=== PATIENT | female | born 1970 | race Caucasian/White ===

== ENCOUNTER 2016-09-08 21:09 | Emergency (ER) | payer OTHER ==
[2016-09-08 21:23] VITALS: BP 158/73; PULSE 70
[2016-09-08] MEDS ORDERED: BENADRYL 50 MG/ML IV ONE (21:49)
[2016-09-08] MEDS ORDERED: Sodium Chloride 0.9% 1000 ML 1,000 ML IV STA (21:49)
[2016-09-08] MEDS ORDERED: TORAdol 30 mg Injection IV ONE (21:49)
[2016-09-08] MEDS ORDERED: Zofran 4 MG/2 ML VIAL IV ONE (21:49)
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
[2016-09-08 22:03] VITALS: O2SAT 98
[2016-09-08] MEDS ORDERED: BENADRYL 50 MG/ML ONE (22:04)
[2016-09-08] MEDS ORDERED: Sodium Chloride 0.9% 1000 ML 1,000 ML ONE (22:04)
[2016-09-08] MEDS ORDERED: Zofran 4 MG/2 ML VIAL ONE (22:04)
[2016-09-08] MEDS ORDERED: TORAdol 30 mg Injection ONE (22:04)
[2016-09-08 22:08] LABS: BASOPHIL % 0.3 % (0.0-0.4); Eosinophil % 1.8 % (0.00-5.0); Granulocytes % 57.9 % (36.0-66.0); Lymphocytes % 34.9 % (24.0-44.0); Mean Corpuscular Hemoglobin 27.1 pg (26-32); Mean Platelet Volume 10.1 fl (6-9.5); Monocytes % 5.1 % (0.0-12.0); Platelet Count 231 K/mm3 (150-450); Red Blood Count 4.84 M/mm3 (4.1-5.4); Red Cell Distribution Width 14.8 % (11.5-14.0); White Blood Count 6.6 K/mm3 (4.0-10.5)
[2016-09-08 22:27] LABS: Erythrocyte Sedimentation Rate 42 mm/hr (0-20)
[2016-09-08 22:34] LABS: ALBUMIN 3.9 g/dL (3.4-5.0); ALKALINE PHOSPHATASE 98 U/L (46-116); BILIRUBIN,TOTAL 0.5 mg/dL (0.2-1.0); BLOOD UREA NITROGEN 12 mg/dL (9-20); CHLORIDE 103 mEq/L (98-107); Carbon Dioxide 28.6 mEq/L (21-32); Glucose 84 MG/DL (70-110); Potassium 4.2 mEq/L (3.5-5.1); SGOT/AST 27 U/L (15-37); SGPT/ALT 33 U/L (12-78); SODIUM 141 mEq/L (136-145); Total Protein 7.8 gm/dL (6.4-8.2)
[2016-09-08] MEDS ORDERED: DILAUDID 1 MG/ML INJECTION IV ONE (22:37)
[2016-09-08] MEDS ORDERED: DILAUDID 1 MG/ML INJECTION ONE (22:41)
[2016-09-08] MEDS ORDERED: Sodium Chloride 0.9% 1000 ML 1,000 ML IV SCH (23:15)
[2016-09-08 23:23] LABS: Bacteria MODERATE /HPF (NEGATIVE); COMPLETE URINE MICROSCOPIC? YES; Collection Type CLEAN CATCH; Epithelial Cells MANY /HPF (FEW); Mucus SLIGHT /HPF (NEGATIVE); WBC 15-25 /HPF (0-5)
[2016-09-08] MEDS ORDERED: KEFLEX 500 MG PO ONE (23:35)
[2016-09-08] MEDS ORDERED: KEFLEX 500 MG ONE (23:37)
== END 2016-09-08 23:40 | disposition home or self-care (01) ==
LOC: ED 21:09
DX: R51 Headache (principal); N39.0 Urinary tract infection, site not specified; R11.2 Nausea with vomiting, unspecified
CPT/HCPCS: 36000; 36415; 80053; 81000; 84436; 84443; 84703; 85025; 85652; 96360; 96374; 96375; 99283; J1170; J1200; J1885; J2405

== ENCOUNTER 2016-12-11 18:17 | Emergency (ER) | payer OTHER ==
[2016-12-11 21:51] VITALS: PULSE 66
[2016-12-11] MEDS ORDERED: Norco 10/325 MG Tablet PO ONE (22:04)
--- NOTE | 2016-12-11 22:06 | ERPHSYRPT ---
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 HAS LIMITED RANGE OF MOTION OF ELBOW. DENIES HEAD, NECK OR BACK INJURY. Occurred: just prior to arrival Method of Injury: fell Quality: constant Severity of Pain-Max: moderate Severity of Pain-Current: moderate Extremities Pain Location: elbow: left Modifying Factors: Improves With: movement Associated Symptoms: none Allergies/Adverse Reactions: codeine Allergy (Verified 12/11/16 21:50) sumatriptan [From Imitrex] Allergy (Verified 12/11/16 21:50) Home Medications: Omeprazole 20 MG [Prilosec 20 mg] 20 mg PO DAILY 04/28/13 [History] Lisinopril 20 mg 09/08/16 [History] Hx Tetanus, Diphtheria Vaccination/Date Given: Yes Hx Influenza Vaccination/Date Given: Yes Hx Pneumococcal Vaccination/Date Given: No - Review of Systems Musculoskeletal: Injury, Joint Pain, Joint Swelling Neurological: No Symptoms Psychological: No Symptoms - Past Medical History Pertinent Past Medical History: Yes Cardiac History: Hypertension Musculoskeletal History: Other GI Medical History: GERD Psycho-Social History: Depression Other Medical History: ASTHMA - Past Surgical History Past Surgical History: Yes Cardiac: Other Musculoskeletal: Orthopedic Surgery Other Surgical History: aortic repair,gallbladder - Social History Smoking Status: Never smoker Exposure to second hand smoke: Yes Drug Use: none Patient Lives Alone: No - Female History Hx Last Menstrual Period: 11/23/2016 Hx Now: No - Nursing Vital Signs Nursing Vital Signs: Initial Vital Signs Pulse Rate 66 Respiratory Rate 18 Blood Pressure [Right Arm] 124/67 Pain Intensity 4 - Physical Exam General Appearance: no apparent distress Elbow/Forearm Exam: normal ROM (WITH PAIN ), pain, soft tissue tenderness, swelling (THERE IS NO ECCHYMOSIS, LEFT RADIAL PULSE 2+, NO CREPITUS) SpO2: 96 Oxygen Delivery: Room Air - Radiology Exams Left Elbow X-ray Interpretation: Interpreted by me, Negative, No Fracture (NO DISLOCATION) Ordered Tests: Active Orders 24 hr Category Date Time Status Sling Application STAT Care 12/11/16 23:03 Active ELBOW (MINIMUM 3 VIEWS) Stat Exams 12/11/16 22:04 Taken Medication Summary Discontinued Medications Generic Name Dose Route Start Last Admin Trade Name Steven PRN Reason Stop Dose Admin Acetaminophen/Hydrocodone Bitart 1 tab 12/11/16 22:04 12/11/16 22:12 Jenkins 10/325 Mg Tablet PO 12/11/16 22:05 1 tab STAT ONE Administration Acetaminophen/Hydrocodone Bitart Confirm 12/11/16 22:10 Jenkins 10/325 Mg Tablet Administered 12/11/16 22:11 Dose 1 tab .ROUTE .STK-MED ONE Acetaminophen/Hydrocodone Bitart 2 tab 12/11/16 23:03 Jenkins 5/325 Mg PO 12/11/16 23:04 SENT HOME W/ PATIENT ONE - Progress Progress: pain not gone completely Progress Note: 12/11/16 23:10 PATIENT GIVEN NORCO 10/325 ORALLY, ADMINISTERED LEFT ARM SLING Counseled pt/family regarding: diagnosis, need for follow-up, rad results - Departure Time of Disposition: 23:15 Departure Disposition: Home Clinical Impression: CONTUSION/STRAIN LEFT ELBOW Condition: Stable Critical Care Time: No Additional Instructions: WEAR LEFT ARM SLING FOR COMFORT, AND REMOVE AFTER 1 WEEK. NORCO 5/325 EVERY 4 HOURS FOR PAIN NEEDED. APPLY ICE OVER ELBOW SWELLING EVERY 4 HOURS, 30 MINUTES FOR 48 HOURS. FOLLOWUP WITH YOUR FAMILY PHYSICIAN IN 1 WEEK. Prescriptions: Hydrocodone Bit/Acetaminophen [Jenkins 5/325Mg] 1 each PO Q4H PRN PRN #10 tablet PRN Reason: Pain
[2016-12-11] MEDS ORDERED: Norco 10/325 MG Tablet ONE (22:10)
[2016-12-11 22:58] VITALS: BP 124/67
[2016-12-11] MEDS ORDERED: NORCO 5/325 MG PO ONE (23:03)
[2016-12-11 23:06] VITALS: O2SAT 96
[2016-12-11] MEDS ORDERED: NORCO 5/325 MG ONE (23:18)
--- NOTE | 2016-12-12 08:54 | XRAY ---
Indication: Pain following fall. Comparison: None 3 views of the left shoulder obtained. No bony, articular, or soft tissue abnormalities.
== END 2016-12-11 23:41 | disposition home or self-care (01) ==
LOC: ED 18:17
DX: S50.02XA Contusion of left elbow, initial encounter (principal); S53.402A Unspecified sprain of left elbow, initial encounter; W01.0XXA Fall on same level from slipping, tripping and stumbling without subsequent striking against object, initial encounter; Y93.H9 Activity, other involving exterior property and land maintenance, building and construction
CPT/HCPCS: 73080; 99283; A9270-GY

== ENCOUNTER 2018-06-15 02:18 | Emergency (ER) | payer OTHER ==
--- NOTE | 2018-06-15 02:52 | ERPHSYRPT ---
- History of Present Illness Time Seen by Provider: 06/15/18 02:35 Source: patient, family Exam Limitations: no limitations Patient Subjective Stated Complaint: pt is alert and oriented. pt is ambulatory. pt comes in with c/o right elbow pain for the past 2 months. pt states she's "tired of the pain". pt is able to put weight on it, and move it without issue. pt does state that the pain is an 8/10. no obvious deformity, no bruising, no swelling, no lacerations. no limited movement. Triage Nursing Assessment: see above Physician History: 48 y/o right handed white female presents with 2 month h/o right elbow pain. denies injury. pain is intermittent. has tried tylenol and ibuprofen but when it hurts those medications dont help. sometimes keeps her awake. Occurred: other (2 months) Method of Injury: other (no injury) Quality: intermittent, aching Severity of Pain-Max: mild Severity of Pain-Current: mild Extremities Pain Location: elbow: right Modifying Factors: Improves With: nothing Associated Symptoms: none Allergies/Adverse Reactions: codeine Allergy (Verified 12/11/16 21:50) sumatriptan [From Imitrex] Allergy (Verified 12/11/16 21:50) Home Medications: Omeprazole 20 MG [Prilosec 20 mg] 20 mg PO DAILY 04/28/13 [History] Lisinopril 20 mg PO DAILY 09/08/16 [History] Buspirone HCl 5 mg [Buspar 5 mg] 5 mg PO BID PRN 06/15/18 [History] Paroxetine HCl [Paxil] 20 mg PO DAILY 06/15/18 [History] Hx Tetanus, Diphtheria Vaccination/Date Given: Yes Hx Influenza Vaccination/Date Given: Yes Hx Pneumococcal Vaccination/Date Given: No Immunizations Up to Date: Yes - Review of Systems Constitutional: No Symptoms Eyes: No Symptoms Ears, Nose, & Throat: No Symptoms Respiratory: No Symptoms Cardiac: No Symptoms Abdominal/Gastrointestinal: No Symptoms Genitourinary Symptoms: No Symptoms Musculoskeletal: Other (right elbow) Skin: No Symptoms Neurological: No Symptoms Psychological: No Symptoms Endocrine: No Symptoms Hematologic/Lymphatic: No Symptoms Immunological/Allergic: No Symptoms All Other Systems: Reviewed and Negative - Past Medical History Pertinent Past Medical History: Yes Neurological History: No Pertinent History Cardiac History: Aneurysm, Hypertension Respiratory History: Asthma Endocrine Medical History: No Pertinent History Musculoskeletal History: Other GI Medical History: GERD Psycho-Social History: Depression Other Medical History: ASTHMA - Past Surgical History Past Surgical History: Yes Neuro Surgical History: No Pertinent History Cardiac: Other Respiratory: No Pertinent History Gastrointestinal: Cholecystectomy Musculoskeletal: Orthopedic Surgery Other Surgical History: aortic repair,gallbladder - Social History Smoking Status: Never smoker Exposure to second hand smoke: Yes Drug Use: none Patient Lives Alone: No - Female History Hx Now: No - Nursing Vital Signs Nursing Vital Signs: Initial Vital Signs Pulse Rate 64 06/15/18 02:19 Respiratory Rate 20 06/15/18 02:19 Blood Pressure 182/91 06/15/18 02:19 O2 Sat by Pulse Oximetry 98 06/15/18 02:19 Pain Scale Pain Intensity 9 - Physical Exam General Appearance: no apparent distress, alert Neck Exam: normal inspection, non-tender, supple, full range of motion Cardiovascular/Respiratory Exam: chest non-tender, normal breath sounds, regular rate/rhythm, heart sounds normal Abdominal Exam: non-tender, soft Back Exam: normal inspection, normal range of motion, No CVA tenderness, No vertebral tenderness Shoulder Exam: normal inspection, non-tender, no evidence of injury, normal ROM Elbow/Forearm Exam: normal inspection, non-tender, no evidence of injury, normal ROM Wrist Exam: normal inspection, non-tender, no evidence of injury, normal ROM Hand Exam: normal inspection, non-tender, no evidence of injury, normal ROM Neuro/Tendon Exam: normal sensation, normal motor functions, normal tendon functions, responds to pain Mental Status Exam: alert, oriented x 3, cooperative Skin Exam: normal color, warm, dry SpO2 Interpretation: normal SpO2: 98 Oxygen Delivery: Room Air - Course Nursing assessment & vital signs reviewed: Yes - Progress Progress: unchanged, re-examined Progress Note: 06/15/18 02:53 i had offered pt an xray of right elbow. after explaining i could not guarantee we would have a dx with that xray, because she did not have any injury, pt has opted for sheela bandage and obrtain an outpt appt with pcp for an mri. i told pt i would not provide any narcotic medication without a dx that warrants it. she agrees with this plan. Counseled pt/family regarding: diagnosis, need for follow-up - Departure Time of Disposition: 02:56 Departure Disposition: Home Clinical Impression: Elbow pain, right Condition: Stable Critical Care Time: No Referrals: SAMANTHA JACKSON [Primary Care Provider] - Additional Instructions: wear sheela wrap for comfort. use ice pack 3 times daily for 2 days. continue tylenol and ibuprofen for pain. follow up today for further management
[2018-06-15 03:18] VITALS: BP 138/74; PULSE 75; O2SAT 99
== END 2018-06-15 03:17 | disposition home or self-care (01) ==
LOC: ED 02:18
DX: M25.521 Pain in right elbow (principal); I10 Essential (primary) hypertension; J45.909 Unspecified asthma, uncomplicated; K21.9 Gastro-esophageal reflux disease without esophagitis; F32.9 Major depressive disorder, single episode, unspecified
CPT/HCPCS: 99283

== ENCOUNTER 2018-12-28 10:11 | Day surgery (SDC) | payer OTHER ==
--- NOTE | 2018-12-28 08:34 | HP ---
DATE OF SURGERY: 12/28/2018 HISTORY OF PRESENT ILLNESS: The patient is a 48 year-old with raised lesion right posterior calf area and also another area on the right arm increasing in size, increasing change in color. She is in need of excision of both of these areas for definitive path of enlarging lesions of indeterminate behavior. PAST MEDICAL HISTORY: Hypertension, some reflux. PAST SURGICAL HISTORY: Cholecystectomy. Heart surgery to repair aorta in the past. Knee surgery in the past. MEDICATIONS: Lisinopril, loratadine, omeprazole, Topamax. She could not remember all of her medications. She will bring the day of the procedure. ALLERGIES: CODEINE. TAPE. FAMILY HISTORY: Knee problems. SOCIAL HISTORY: No smoking or alcohol abuse. REVIEW OF SYSTEMS: Twelve systems reviewed. No chest pain or palpitations other systems negative or noncontributory as above and per preadmission questionnaire. PHYSICAL EXAMINATION: GENERAL: No acute distress. HEENT: Sclerae nonicteric. NECK: No JVD. CHEST: Equal excursion, nonlabored breathing. CVS: Regular rate and rhythm. ABDOMEN: Soft. No peritoneal signs. EXTREMITIES: Right arm enlarging lesion changing color. Lesion of indeterminate behavior in need of excision. Additionally, she has one on the right calf. Otherwise no cyanosis. NEURO: Alert, moving extremities symmetrically. No gross motor deficits noted. IMPRESSION: Enlarging lesion changing color, uncertain behavior right arm and right calf. She is in need of excisional biopsy for definitive path and treatment. Risks and benefits explained in detail including but not limited to bleeding or infection, risk of wound dehiscence possibly requiring packing, risk of aches, pains, burning or numbness possibly usp or chronic in nature, possibility should either of these be malignant she may need wider excision or other procedures. She understands as well as general risk of anesthesia, deep venous thrombosis, pulmonary embolism, pneumonia but not limited to, will proceed with excisional biopsy of right arm lesion and right calf lesion as an outpatient.
[~2018-12-28 10:11] MED LIST: Lactated Ringers 1,000 ML IV ONE; Sensorcaine 0.25% 10 ML ONE
[2018-12-28] MEDS ORDERED: ROBINUL IV ONE (10:12)
[2018-12-28] MEDS ORDERED: SUBLIMAZE 100 MCG/2 ML IV ONE (10:12)
[2018-12-28] MEDS ORDERED: Zofran 4 MG/2 ML VIAL IV ONE (10:12)
[2018-12-28] MEDS ORDERED: DIPRIVAN 200 MG/20 ML IV ONE (10:12)
[2018-12-28] MEDS ORDERED: Quelicin Fliptop 200 MG/10 ML IV ONE (10:12)
[2018-12-28] MEDS ORDERED: Decadron 4 MG INJ IV ONE (10:12)
[2018-12-28] MEDS ORDERED: TORAdol 30 mg Injection IV ONE (10:12)
[2018-12-28] MEDS ORDERED: Lactated Ringers 1,000 ML IV SCH (10:30)
[2018-12-28] MEDS ORDERED: KEFZOL 1 GM ONE (11:39)
[2018-12-28] MEDS ORDERED: SUBLIMAZE 100 MCG/2 ML ONE (13:21)
--- NOTE | 2018-12-28 14:22 | OP ---
SURGERY DATE/TIME: 12/28/2018 1232 PREOPERATIVE DIAGNOSIS: Enlarging nonhealing lesion right arm and right leg. POSTOPERATIVE DIAGNOSIS: Enlarging nonhealing lesion right arm and right leg. PROCEDURES: 1) Excisional biopsy of nonhealing, enlarging lesion right arm (approximately 1.4 cm with margins) with intermediate closure. 2) Excisional biopsy of nonhealing, enlarging lesion right leg with intermediate closure (1.2 cm with margins). SURGEON: Dr. Benedict Wade. ANESTHESIA: General. ESTIMATED BLOOD LOSS: Minimal. INDICATIONS: As noted above. Risks and benefits explained in detail and not limited to and consent obtained. The site is confirmed and marked in the preoperative holding area. DESCRIPTION OF PROCEDURE AND FINDINGS: She is taken to the operating room. General anesthesia introduced. Arm and leg are prepped and draped in usual sterile fashion. After official time out and no disagreement with planned procedure, starting first with the arm lesion dissecting out around normal appearing skin on either side of it resulting in about 3.5 to 4 cm long spindle-shaped excision dissecting down to normal appearing subcutaneous tissue. It should be noted that even though we stayed close to the lesion because of her obesity and the tightness of her skin this got much wider open. The specimen passed off for pathology. It had been closed with interrupted 3-0 Vicryl closing the deep and superficial subcu. Skin closed with 4-0 Vicryl with interrupted 3-0 Vertical mattress, 3-0 Prolene used to reinforce the area given the location and tight skin. Sterile dressing applied. The patient transferred to the recovery room in stable condition. Gloves and instruments were changed. Attention is then turned to the leg lesion, this was a rougher more excoriated nonhealing lesion. Marked down to normal appearing skin on either side of this resulting in a 1.2 cm with specimen margin. The arm lesion about 1.5 cm with margins. Resulting in spindle-shaped excision pattern about 2 to 3.5 cm. Dissection carried down to normal appearing subcutaneous tissue beneath. Specimen passed off for pathology. Good hemostasis noted. The wound is then closed in layers with interrupted 3-0 Vicryl for the deep superficial subcu. Skin closed with 4-0 Vicryl interrupted vertical mattress, 3-0 Prolene used to reinforce the area given the tight skin. Sterile dressing applied. The patient tolerated the procedure well. There were no immediate complications. Findings discussed with the family out in the waiting area. There were no immediate complications.
[2018-12-28 14:26] VITALS: BP 142/84; PULSE 99
[2018-12-28 14:30] VITALS: O2SAT 99
== END 2018-12-28 14:15 | disposition home or self-care (01) ==
LOC: SDC 10:11
PROVIDERS: ATTEND Surgery
DX: L98.9 Disorder of the skin and subcutaneous tissue, unspecified (principal); Q85.9 Phakomatosis, unspecified; L43.9 Lichen planus, unspecified
CPT/HCPCS: 84703; 88305; 88341; 88342; 88360; J0330; J0690; J1100; J1885; J2405; J2704; J3010

== ENCOUNTER 2020-05-04 02:51 | Emergency (ER) | payer OTHER ==
[2020-05-04] MEDS ORDERED: CLEOCIN 150 MG CAPSULE PO ONE (03:06)
[2020-05-04] MEDS ORDERED: XYLOCAINE VISCOUS 2% 20 ML CUP PO ONE (03:07)
[2020-05-04] MEDS ORDERED: CLEOCIN 150 MG CAPSULE ONE (03:09)
[2020-05-04 03:12] VITALS: O2SAT 100
[2020-05-04] MEDS ORDERED: XYLOCAINE HCl Viscous PO ONE (03:19)
[2020-05-04] MEDS ORDERED: XYLOCAINE HCl Viscous ONE (03:20)
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
[2020-05-04 03:40] VITALS: BP 192/83; PULSE 62
== END 2020-05-04 03:40 | disposition home or self-care (01) ==
LOC: ED 02:51
DX: K04.7 Periapical abscess without sinus (principal); Z79.899 Other long term (current) drug therapy; I10 Essential (primary) hypertension
CPT/HCPCS: 99283; A9270-GY